=== PATIENT | male | born 1995 | race Hispanic/Latino ===

== ENCOUNTER 2016-12-19 11:21 | Inpatient (IN) | payer OTHER ==
[~2016-12-19] VITALS: Ht 167.6 cm; Wt 64.4 kg
[2016-12-19 12:52] LABS: MEAN CORPUSCULAR HEMOGLOBIN 31.3 pg (27.0-33.0); MEAN CORPUSCULAR HGB CONC 33.5 g/dl (32.0-36.5); MEAN CORPUSCULAR VOLUME 93.3 fl (80.0-96.0); RED CELL DISTRIBUTION WIDTH 12.5 % (11.5-14.5); WHITE BLOOD COUNT 4.1 K/mm3 (4.0-10.0)
[2016-12-19 13:14] LABS: METHADONE URINE NEGATIVE (NEGATIVE)
[2016-12-19 13:20] LABS: ALBUMIN 4.4 GM/DL (3.2-5.2); ALBUMIN/GLOBULIN RATIO 1.16 (1.00-1.93); ALKALINE PHOSPHATASE 87 U/L (45-117); ALT/SGPT 47 U/L (12-78); ANION GAP 5 MEQ/L (8-16); AST/SGOT 30 U/L (15-37); BILIRUBIN,DIRECT 0.1 MG/DL (0.0-0.2); BILIRUBIN,TOTAL 0.3 MG/DL (0.2-1.0); BLOOD UREA NITROGEN 23 MG/DL (7-18); CALCIUM LEVEL 9.6 MG/DL (8.5-10.1); CARBON DIOXIDE LEVEL 31 MEQ/L (21-32); CHLORIDE LEVEL 105 MEQ/L (98-107); CREATININE FOR GFR 0.85 MG/DL (0.70-1.30); GLOMERULAR FILTRATION RATE > 60.0 (>60); GLUCOSE, FASTING 90 MG/DL (70-105); POTASSIUM SERUM 4.2 MEQ/L (3.5-5.1); SODIUM LEVEL 141 MEQ/L (136-145); TOTAL PROTEIN 8.2 GM/DL (6.4-8.2)
[2016-12-19] MEDS ORDERED: traZODone 50 MG TAB PO PRN (14:30)
[2016-12-19] MEDS ORDERED: MOM 30ML SUSPENSION UDC PO PRN (14:30)
[2016-12-19] MEDS ORDERED: ACETAMINOPHEN TAB 650MG DOSE (2X325MG) PO PRN (14:30)
[2016-12-19] MEDS ORDERED: MAALOX 30 ML SUSP *UDC PO PRN (14:30)
[2016-12-19] MEDS ORDERED: VITMTA PO (14:43)
[2016-12-19 16:58] VITALS: BP 118/54
[2016-12-20 06:41] VITALS: BP 120/55
--- NOTE | 2016-12-20 10:47 | HPEPDOC ---
Medical History and Physical Date of Admission Dec 19, 2016 at 14:16 History and Physical PCP: [facility] ATTENDING: Dr. Santhosh Forte HPI: 21yoM admitted to [facility] for adjustment disorder, being medically examined today. No acute medical complaints today. Denies any fevers, chills, weakness, fatigue, [place], CP, SOB, cough, palpitations, abdominal pain, N/V/D or changes in bowel or bladder habits. PMHx: Depression PSHX: Skin tag removed from neck SOCHX: Resides in: [place], from [place] Marital Status: Single Kids: None Employment: Active duty Tobacco use: Denies ETOH: 3-4 drinks every 3 months Illicit Drugs: Denies IV Drug Use: Denies Tattoos done unprofessionally: Denies FAMHX: Mother: Alive, well Father: , unknown Siblings: None Children: None Unexpected deaths due to medical reasons: None. ROS: As noted in HPI, otherwise 11pt ROS of systems reviewed and unremarkable. PE: GEN: 21yoM, appears stated age. Well-nourished, well developed. No acute distress. Alert and oriented x 3. Pleasant, interactive. HEENT: Normocephalic, atraumatic. Pupils are equal, round, and reactive to light. Extraocular movements are intact. No nystagmus appreciated. Sclera are nonicteric. Conjunctiva without injection. Nose midline. Nasal turbinates without bogginess. EACs both patent BL. TMs both visualized and page with good cone of light, no bulging or erythema. No facial asymmetry. Moist mucous membranes. Dentition fair. Pharynx pink and moist, no cobblestoning. Neck supple , trachea midline. No lymphadenopathy or thyromegaly appreciated. CHEST: Regular rate and rhythm, +S1, +S2 LUNGS: Clear to auscultation bilaterally. No wheezes, rales, or rhonchi. Breathing appears symmetric and easy. Patient is speaking in full sentences. No accessory muscle use. ABD: Round, soft, non-tender, non-distended. +Bowel sounds throughout. No rebound or guarding. No costovertebral angle tenderness. EXT: Pulses 2+ bilaterally dorsalis pedis and radial. No lower extremity edema appreciated. SKIN: [place], dry, warm. Capillary refill <2sec. No rashes. NEURO: Alert and oriented x 3. Cranial nerves III-XII are intact. No focal deficits appreciated. EKG: pending A&P: 21yoM admitted to [facility] for adjustment disorder 1. Psych. Plan per Psychiatry. Obtain baseline EKG to assure the safety of psychiatric medications as they can prolong the QT interval. 2. Follow up with PCP on discharge. 3. Staff member Ed present throughout exam Vital Signs Vital Signs Date Time Temp Pulse Resp B/P Pulse Ox O2 Delivery O2 Flow Rate FiO2 12/20/16 06:41 98.2 57 16 120/55 12/19/16 16:58 98 Room Air Laboratory Data Labs 24H Laboratory Tests 2 12/19/16 11:58: Acetaminophen Level < 2.0L, Aspartate Amino Transf (AST/SGOT) 30, Alanine Aminotransferase (ALT/SGPT) 47, Alkaline Phosphatase 87, Total Bilirubin 0.3, Direct Bilirubin 0.1, Albumin 4.4, Albumin/Globulin Ratio 1.16, Anion Gap 5L, Calcium Level 9.6, Ethyl Alcohol Level 0.003, Glomerular Filtration Rate > 60.0 , Salicylates Level < 1.7L, Thyroid Stimulating Hormone (TSH) 0.795, Total Protein 8.2, Urine Amphetamines Screen NEGATIVE, Urine Benzodiazepines Screen NEGATIVE, Urine Opiates Screen NEGATIVE, Urine Barbiturates Screen NEGATIVE, Urine Cannabinoids Screen NEGATIVE, Urine Cocaine Metabolite Screen NEGATIVE, Urine Methadone Screen NEGATIVE, Urine Phencyclidine Screen NEGATIVE CBC/BMP Laboratory Tests 12/19/16 11:58 Red Blood Count 4.56, Mean Corpuscular Volume 93.3, Mean Corpuscular Hemoglobin 31.3, Mean Corpuscular Hemoglobin Concent 33.5, Red Cell Distribution Width 12.5 Home Medications Scheduled Multivitamins *[facility] STOCKED* (Thera M Plus *[facility] STOCKED*) 1 Tab Tab 1 TAB PO DAILY Allergies Coded Allergies: No Known Allergies (Unverified , 12/19/16) Alisa Mock Dec 20, 2016 10:47
--- NOTE | 2016-12-20 20:52 | HPEPDOC ---
[facility] History & Physical History and Physical DATE OF ADMISSION: Dec 19, 2016 at 14:16 CHIEF COMPLAINT: "I went to my [facility] appointment and told them that 2 weeks ago I let anger get the best of me and I drank and I tried to hang myself; they knew that wasn't good." HISTORY OF THE PRESENT ILLNESS: Patient is a 21-year-old male, who was referred by [facility] for evaluation after reporting to [facility] worker that he had attempted to hang himself in his barracks room 2 weeks prior. Patient indicates, "I don't think it was intentional, I was just really angry and drunk." This was patient's third suicide attempt, he denies history of self-injurious behavior. Patient states symptoms of depression began approximately one year after joining the [employer] and he attributes symptoms to the [place] in the [employer]. However, per [facility] records, patient had indicated to [facility] medication provider when seen on 12/08/16 that he had been experiencing depression since approximately August 2016 which he attributed to a combination of stressors related to mother and stepfather's divorce, not speaking to his bio-father for several years, and work -related stress. Patient informed [facility] provider that he had attempted to hang himself in September 2016, and then had attempted suicide by way of overdose on Benadryl with alcohol in October 2016, patient had been prescribed psychotropic medication by [facility] provider which he apparently never trialed. Patient indicates in the 2 weeks prior to most recent suicide attempt he was experiencing the following symptoms and stressors: Anxiety, depression, irritability, ruminative thinking, suicidal ideation, hopelessness/helplessness , erratic sleep, grief related to biological father's on 11/08/16 and being treated "like a black sheep" when attending his father's , adds family refused to tell him how his father had , alcohol use, thinking that his mother would be better off if she had patient's [employer] survivor benefits, work- related stress, poor impulse control. Patient rates current anxiety level as 0/ 10, depression 6/10, denies current suicidal or homicidal ideation, denies audiovisual hallucinations, and denies urge to engage in self-injurious behavior. Patient denies history of discomfort in social settings, denies panic attacks, denies symptoms of reexperiencing, avoidance, or hypervigilance, denies symptoms of hypomania or jeanette. Patient indicates appetite is stable and denies recent changes to weight. Patient reports sleep latency challenges of approximately one hour, denies nighttime waking and denies nightmares. Patient denies compulsive behavior, aggression and agitation, denies history of unsanctioned violence and denies having access to weapons. Patient has been in the [employer] for 3 years, stationed and [facility] for approximately 3 years, denies history of deployment. 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 Trauma: Denies. Psychosis: Denies. Personally: Is engageable, cooperative, generally pleasant. PAST PSYCHIATRIC HISTORY: Prior Psychiatric Disorder: Denies Outpatient Treatment: Indicates he has been seen at [facility] outpatient 2 on a "weekly checkup" schedule, was prescribed Wellbutrin which he never started. Also attended counseling briefly during the first grade due to stress related to mother and father when he was age 4. Suicidal/Self injurious: Suicide attempt in [address] in his barracks room, suicide attempt in October [address] of overdose on Benadryl and alcohol Psychotropic Medication History: Was prescribed Wellbutrin by [facility] outpatient provider, states he did not take medication ALLERGIES: Please see below. FAMILY PSYCHIATRIC HISTORY: Mother - anxiety, denies knowledge of family history of suicide attempt SOCIAL HISTORY: Early Relations/development: Born in [place] and raised by mother and stepfather, notes biological father left at age 8. Patient states his biological father 11/08/16 and he went to attend the noting, "the [place] side of the family blacklisted me and wouldn't tell me anything about how he ." Sibling order: Has one stepsister and one stepbrother Paternal relationships: States he has regular contact with his mother was also recently , currently no contact with his stepfather with whom he was at one time close Education: High school graduate Occupational: History of yard work, joined [employer] age 18 in [place], no deployment history Legal: Denies Martial: Single, no children, never Economic: Reports financial strain related to mother requesting financial support Supports: Indicates mother is supportive, maintains regular contact Abuse/trauma: Denies SUBSTANCE ABUSE HISTORY: Patient denies use of tobacco products indicates he "rarely" drinks alcohol, notes he consumes 5 drinks 1 time every 3-4 months. PAST MEDICAL/SURGICAL HISTORY: Labs on admission indicated a low anion gap and elevated BUN. Recently diagnosed with tinnitus, history of skin tag removal from neck, denies history of seizure or head injury. UDS negative on admission EKG pending VITAL SIGNS: B/P 126/64, P 55, R 18, T 98.2 MENTAL STATUS EXAMINATION: General appearance: Patient is a 83-mwbl-aff-year old male, who is pleasant and cooperative, makes limited eye contact, exhibits good personal hygiene, is dressed in hospital clothing, ambulates with steady gait, appears stated age. Speech: Is of normal rate, rhythm, volume, coherent, spontaneous. Thought processes: Linear, clear, goal-directed, predominantly logical Thought content: Rational, generally logical, no paranoia or tangentiality. Abstract reasoning and computation: Appear intact. Description of associations: Intact. Description of abnormal or psychotic thoughts: Denies current suicidal or homicidal ideation, denies audiovisual hallucinations, does not appear to be responding to internal stimuli, exhibits no bizarre or paranoid ideation, denies any preoccupation with violence or obsessions. Judgment: Poor. Insight: Poor. Orientation: A and O 3. Recent and remote memory: Appear intact. Attention span and concentration: Within normal limits. Fund of knowledge: Adequate. Mood: "Subtle, sticking to myself." Patient appears depressed and anxious, no mood lability noted Affect: Constricted, brightens at times DIAGNOSES: Adjustment disorder with depressed mood, bereavement, rule out MDD ASSESSMENT: Patient appears to be adjusting to unit, predominantly isolates to room but is visible at times, has not been attending groups. Screw Machine Operator and patient spoke at length today regarding medication options and commercial real estate underwriter strongly recommended antidepressant medication trial which patient declined noting, "I'm going to fix myself; I don't like to depend on medication." Patient was also apparently prescribed medication by [facility] provider which she never trialed. Patient denies suicidal and homicidal ideation and verbalizes awareness of how to access supportive services on the unit if needed. Will monitor patient's response to the inpatient treatment environment and we'll continue to encourage patient to take antidepressant in effort to reduce symptoms of anxiety, depression, and suicidal ideation. Will evaluate patient's safety, resolution of suicidal ideation, and discharge readiness. Patient is aware that when prepared for discharge he will return to [facility] for follow-up treatment. PROBLEM LIST: Suicide attempt Anxiety Depression Ineffective coping Bereavement Impulsivity Limited support INITIAL TREATMENT PLAN: 1. Patient was admitted on a 9. 2. Complete history was obtained. 3. With patients permission, family will be contacted and database will be expanded. 4. Patients medication regimen will be reviewed and changed accordingly. 5. Patient will be provided with protected environment. 6. Patient will be treated with individual, group, and milieu therapies. 7. Patient will receive supportive psych-education. 8. Discharge planning will commence immediately. 9. Outpatient follow-up treatment will be strongly recommended. 10. The initial treatment plan will focus initially on: * Depression. * Risk for suicide. * Substance abuse. ESTIMATED LENGTH OF STAY: 5-7 DAYS. TIME SPENT COUNSELING AND COORDINATING INITIAL CARE: 50 minutes. Medications Scheduled Multivitamins *[facility] STOCKED* (Thera M Plus *[facility] STOCKED*) 1 Tab Tab 1 TAB PO DAILY (Reported) Allergies Coded Allergies: No Known Allergies (Unverified , 12/19/16) Marimar Espinoza Dec 20, 2016 20:52
[2016-12-21 06:33] VITALS: BP 118/51
[2016-12-21 18:00] VITALS: BP 124/54
--- NOTE | 2016-12-21 19:11 | IPNPDOC ---
[facility] Progress Note Progress Note DATE OF SERVICE: 12/21/16 HISTORY: Patient is a 21-year-old male, who was referred by [facility] for evaluation after reporting to [facility] worker that he had attempted to hang himself in his barracks room 2 weeks prior , as indicated he had 2 prior suicide attempts. Patient reports 0/10 anxiety, 5/ 10 depression, denies audiovisual hallucinations, denies suicidal and homicidal ideation, denies urge to engage in self-injurious behavior. Patient has not been attending groups noting, "I don't want to go, I don't want to explain myself. I stick to myself, I don't like to take advice I don't think I need." Trailer Mechanic and patient spoke at length again today regarding psychotropic medications on the patient continues to deny need. 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 Patient was encouraged to participate in unit activities in effort to improve coping mechanisms. Patient indicates he is sleeping well, denies challenges with concentration and focus, describes energy level as "pretty good," notes appetite is stable. VITAL SIGNS: See below. NEW TEST RESULTS: No new results. PAST MEDICAL/SURGICAL HISTORY: Labs on admission indicated a low anion gap and elevated BUN. Recently diagnosed with tinnitus, history of skin tag removal from neck, denies history of seizure or head injury. UDS negative on admission EKG pending CURRENT MEDICATIONS: See below. MENTAL STATUS EXAMINATION: General appearance: Patient is a 59-ucls-kcc-year old male, who is pleasant and cooperative, makes limited eye contact, exhibits good personal hygiene, is dressed in hospital clothing, ambulates with steady gait, appears stated age. Speech: Is of normal rate, rhythm, volume, coherent, spontaneous. Thought processes: Linear, clear, goal-directed, predominantly logical Thought content: Rational, generally logical, no paranoia or tangentiality. Abstract reasoning and computation: Appear intact. Description of associations: Intact. Description of abnormal or psychotic thoughts: Denies current suicidal or homicidal ideation, denies audiovisual hallucinations, does not appear to be responding to internal stimuli, exhibits no bizarre or paranoid ideation, denies any preoccupation with violence or obsessions. Judgment: Poor. Insight: Poor. Orientation: A and O 3. Recent and remote memory: Appear intact. Attention span and concentration: Within normal limits. Fund of knowledge: Adequate. Mood: "Ok, I feel best when I'm in my room sticking to myself." Patient appears depressed and anxious, no mood lability noted Affect: Constricted, no brightening today DIAGNOSES: Adjustment disorder with depressed mood, bereavement, rule out MDD ASSESSMENT:Patient appears to be slowly adjusting to unit, [place] isolated to room and has not been attending groups. Trailer Mechanic and patient spoke at length today regarding medication options and business writer strongly recommended antidepressant medication trial which patient declined citing disinterest and lack of need. Patient was also apparently prescribed medication by [facility] provider which he never trialed. Patient denies suicidal and homicidal ideation and verbalizes awareness of how to access supportive services on the unit if needed. Will monitor patient's response to the inpatient treatment environment and will continue to encourage patient to take antidepressant in effort to reduce symptoms of anxiety, depression, and suicidal ideation. Will evaluate patient's safety, resolution of suicidal ideation, and discharge readiness. Patient is aware that when prepared for discharge he will return to [facility] for follow- up treatment and IOP will be recommended. MANAGEMENT PLAN: Encourage patient to consider taking psychotropic medication to address symptoms if appropriate Maintain safety precautions Patient to attend groups and participate in unit programming to develop coping strategies Engage patient in discharge planning process and arrange meeting with command to evaluate safe discharge planning when appropriate Patient to follow up with [facility] upon discharge TIME SPENT: 35 minutes. Vital Signs Vital Signs Date Time Temp Pulse Resp B/P Pulse Ox O2 Delivery O2 Flow Rate FiO2 12/21/16 18:00 98.9 55 16 124/54 12/19/16 16:58 98 Room Air Current Medications Current Medications Acetaminophen (Tylenol Tab) 650 mg Q6HP PRN PO HEADACHE or DISCOMFORT; Start at 14:30; Stop 01/18/17 at 14:29 Al Hydrox/Mg Hydrox/Simethicone (Mylanta) 30 ml Q4HP PRN PO HEARTBURN/ INDIGESTION; Start 12/19/16 at 14:30; Stop 01/18/17 at 14:29 Home Med (Med Rec Complete!) ASDIRECTED XX ; Start 12/19/16 at 14:45; Stop 07/27 at 14:49; Status DC Magnesium Hydroxide (Milk Of Magnesia) 30 ml DAILYPRN PRN PO CONSTIPATION; Start 12/19/16 at 14:30; Stop 01/18/17 at 14:29 Trazodone HCl (Desyrel) 50 mg QHSP PRN PO INSOMNIA; Start 12/19/16 at 14:30; Stop 01/18/17 at 14:29 Allergies Coded Allergies: No Known Allergies (Unverified , 12/19/16) Marimar Espinoza Dec 21, 2016 19:11 Abstract reasoning and computation: Appear intact. Description of associations: Intact. Description of abnormal or psychotic thoughts: Denies current suicidal or homicidal ideation, denies audiovisual hallucinations, does not appear to be responding to internal stimuli, exhibits no bizarre or paranoid ideation, denies any preoccupation with violence or obsessions. Judgment: Poor. Insight: Poor. Orientation: A and O 3. Recent and remote memory: Appear intact. Attention span and concentration: Within normal limits. Fund of knowledge: Adequate. Mood: "Subtle, sticking to myself." Patient appears depressed and anxious, no mood lability noted Affect: Constricted, brightens at times DIAGNOSES: Adjustment disorder with depressed mood, bereavement, rule out MDD ASSESSMENT: Patient appears to be adjusting to unit, predominantly isolates to room but is visible at times, has not been attending groups. Trailer Mechanic and patient spoke at length today regarding medication options and business writer strongly recommended antidepressant medication trial which patient declined noting, "I'm going to fix myself; I don't like to depend on medication." Patient was also apparently prescribed medication by [facility] provider which she never trialed. Patient denies suicidal and homicidal ideation and verbalizes awareness of how to access supportive services on the unit if needed. Will monitor patient's response to the inpatient treatment environment and we'll continue to encourage patient to take antidepressant in effort to reduce symptoms of anxiety, depression, and suicidal ideation. Will evaluate patient's safety, resolution of suicidal ideation, and discharge readiness. Patient is aware that when prepared for discharge he will return to [facility] for follow-up treatment. Vital Signs Vital Signs Date Time Temp Pulse Resp B/P Pulse Ox O2 Delivery O2 Flow Rate FiO2 12/21/16 18:00 98.9 55 16 124/54 12/19/16 16:58 98 Room Air Current Medications Current Medications Acetaminophen (Tylenol Tab) 650 mg Q6HP PRN PO HEADACHE or DISCOMFORT; Start at 14:30; Stop 01/18/17 at 14:29 Al Hydrox/Mg Hydrox/Simethicone (Mylanta) 30 ml Q4HP PRN PO HEARTBURN/ INDIGESTION; Start 12/19/16 at 14:30; Stop 01/18/17 at 14:29 Home Med (Med Rec Complete!) ASDIRECTED XX ; Start 12/19/16 at 14:45; Stop 07/27 at 14:49; Status DC Magnesium Hydroxide (Milk Of Magnesia) 30 ml DAILYPRN PRN PO CONSTIPATION; Start 12/19/16 at 14:30; Stop 01/18/17 at 14:29 Trazodone HCl (Desyrel) 50 mg QHSP PRN PO INSOMNIA; Start 12/19/16 at 14:30; Stop 01/18/17 at 14:29 Allergies Coded Allergies: No Known Allergies (Unverified , 12/19/16) Marimar Espinoza Dec 21, 2016 19:11
--- NOTE | 2016-12-21 22:42 | ECGEPIP ---
Stationary ECG Study [facility] Test Date: 2016-12-21 Pat Name: CINTIA NEGRETE Department: Room: [place] [address] Gender: M Gravel Hauler: MARGARET : 1995 Requested By: Alisa Mock Order Number: [id number] Reading MD: Chris Durant Measurements Intervals [place] Rate: 48 P: 71 DE: 134 QRS: 63 QRSD: 98 T: 30 QT: 423 QTc: 382 Interpretive Statements SINUS BRADYCARDIA Otherwise normal for age Electronically Signed On 12-21-2016 22:42:18 EDT by Chris Durant
[2016-12-22 05:58] VITALS: BP 108/65
--- NOTE | 2016-12-22 12:28 | IPNPDOC ---
[facility] Progress Note Progress Note DATE OF SERVICE: 12/22/16 HISTORY: Patient is a 21-year-old male, who was referred by [facility] for evaluation after reporting to [facility] worker that he had attempted to hang himself in his barracks room 2 weeks prior , as indicated he had 2 prior suicide attempts. Patient reports improvement to symptoms of anxiety and depression noting, "I feel more relaxed with no thoughts of detrimenting myself." Patient denies suicidal or homicidal ideation , denies audiovisual hallucinations, and denies urge to engage in self- injurious behavior. Patient indicates he has now attended one group, remains otherwise isolated to his room, generally has not been attending groups noting, "I prefer to stick to myself but I was out in the lounge last night." Patient spoke openly today with junior copywriter regarding previous suicide attempts. Patient stated first attempted hanging was the result of "I have just return from leave , I was very sad and I missed home." Patient indicated second attempt which involved overdose on Benadryl with alcohol occurred because "really I just wanted to get out of work." Change Control Analyst and patient spoke at length again today regarding psychotropic medications, patient continues to deny need. Patient reiterates today he plans to "ride out" the remaining 8 months he has in the [employer], after which he plans to return to [place] to be close to mother, get his own apartment and attend [employer] or [employer] for computer science or law enforcement. Patient indicates he has had a visit from his first sergeant who brought him reading materials, added he feels "good" about the visit and feels his support system is improving. Patient was encouraged to participate in unit activities in effort to improve coping mechanisms and was strongly encouraged to consider psychotropic medication trial. Patient indicates he is sleeping well , denies challenges with concentration and focus, describes energy level as "fine," notes appetite is stable. Patient is declining to sign an MAHIN to permit contact with family to strengthen support system. VITAL SIGNS: See below. NEW TEST RESULTS: No new results. PAST MEDICAL/SURGICAL HISTORY: Labs on admission indicated a low anion gap and elevated BUN. Recently diagnosed with tinnitus, history of skin tag removal from neck, denies history of seizure or head injury. UDS negative on admission 12/21/16 EKG SINUS BRADYCARDIA Otherwise normal for age CURRENT MEDICATIONS: See below. MENTAL STATUS EXAMINATION: General appearance: Patient is a 13-uldi-vwh-year old male, who is pleasant and cooperative, makes limited eye contact, exhibits good personal hygiene, is dressed in hospital clothing, ambulates with steady gait, appears stated age. Speech: Is of normal rate, rhythm, volume, coherent, spontaneous. Thought processes: Linear, clear, goal-directed, predominantly logical Thought content: Rational, generally logical, no paranoia or tangentiality. Abstract reasoning and computation: Appear intact. Description of associations: Intact. Description of abnormal or psychotic thoughts: Denies current suicidal or homicidal ideation, denies audiovisual hallucinations, does not appear to be responding to internal stimuli, exhibits no bizarre or paranoid ideation, denies any preoccupation with violence or obsessions. Judgment: Poor. Insight: Poor. Orientation: A and O 3. Recent and remote memory: Appear intact. Attention span and concentration: Within normal limits. Fund of knowledge: Adequate. Mood: "Ok, I've been trying to get out of my room more." Patient continues to appear depressed and anxious, no mood lability noted Affect: Blunted, no brightening today DIAGNOSES: Adjustment disorder with depressed mood, bereavement, rule out MDD ASSESSMENT:Patient continues to slowly adjust to unit, remains generally isolated to room, has now attended one group. Change Control Analyst and patient spoke at length today regarding medication options and junior copywriter strongly recommended antidepressant medication trial which patient declined citing disinterest and lack of need. Patient was also apparently prescribed medication by [facility] provider which he never trialed. Patient denies suicidal and homicidal ideation and verbalizes awareness of how to access supportive services on the unit if needed. Will monitor patient's response to the inpatient treatment environment and will continue to encourage patient to take antidepressant in effort to reduce symptoms of anxiety, depression, and suicidal ideation. Will evaluate patient's safety, resolution of suicidal ideation, and discharge readiness. Patient is aware that when prepared for discharge he will return to [facility] for follow- up treatment and IOP will be recommended. MANAGEMENT PLAN: Encourage patient to consider taking psychotropic medication to address symptoms if appropriate Maintain safety precautions Patient to attend groups and participate in unit programming to develop coping strategies Engage patient in discharge planning process and arrange meeting with command to evaluate safe discharge planning when appropriate Patient to follow up with [facility] upon discharge TIME SPENT: 35 minutes. Vital Signs Vital Signs Date Time Temp Pulse Resp B/P Pulse Ox O2 Delivery O2 Flow Rate FiO2 12/22/16 05:58 97.5 66 16 108/65 Room Air 12/19/16 16:58 98 Current Medications Current Medications Acetaminophen (Tylenol Tab) 650 mg Q6HP PRN PO HEADACHE or DISCOMFORT; Start at 14:30; Stop 01/18/17 at 14:29 Al Hydrox/Mg Hydrox/Simethicone (Mylanta) 30 ml Q4HP PRN PO HEARTBURN/ INDIGESTION; Start 12/19/16 at 14:30; Stop 01/18/17 at 14:29 Home Med (Med Rec Complete!) ASDIRECTED XX ; Start 12/19/16 at 14:45; Stop 07/27 at 14:49; Status DC Magnesium Hydroxide (Milk Of Magnesia) 30 ml DAILYPRN PRN PO CONSTIPATION; Start 12/19/16 at 14:30; Stop 01/18/17 at 14:29 Trazodone HCl (Desyrel) 50 mg QHSP PRN PO INSOMNIA; Start 12/19/16 at 14:30; Stop 01/18/17 at 14:29 Allergies Coded Allergies: No Known Allergies (Unverified , 12/19/16) Marimar Espinoza Dec 22, 2016 12:28
[2016-12-22 18:00] VITALS: BP 116/59
[2016-12-23 06:00] VITALS: BP 121/59
[2016-12-23 18:00] VITALS: BP 110/63
[2016-12-24 07:00] VITALS: BP 126/57
[2016-12-24 18:00] VITALS: BP 135/59
[2016-12-25 06:23] VITALS: BP 113/50
--- NOTE | 2016-12-25 10:31 | IPN ---
DATE OF VISIT: 12/24/2016 Mr. Carlin who came in for a suicide attempt while drinking. He has had a history of previous suicide attempts. He states he is home sick for [place] and does not like the [employer]. He would like to return to [place], [place]. He feels he has not been productive in the [employer] and would like to work for [employer] after going to school for computers. He minimizes his previous attempts at hurting himself and states it is due to his immaturity. The patient states he is not presently suicidal, denies hallucinations, delusions, obsessions, compulsions, or phobias. He has a full fund of information and no disturbances of thought. IMPRESSION: 1. Major depressive illness. 2. Alcohol abuse. JONAH
[2016-12-25 18:00] VITALS: BP 120/60
--- NOTE | 2016-12-25 21:09 | IPNPDOC ---
[facility] Progress Note Progress Note DATE OF SERVICE: 12/25/16 HISTORY: 21 year old male with a history of depression and previous suicide attempt by trying to hang himself at the barracks in [place]. He has previous suicide attempts. He is trying to minimize his depressive symptoms and h/o suicide attempt. He says he is doing well and he decided not to take medications because he thinks he can overcome his problems with psychotherapy and perseverance. He says he doesnt like the [employer], feels frustrated and feels homesick and he wants to go back to [place] and continue with his education. VITAL SIGNS: See below. NEW TEST RESULTS: None CURRENT MEDICATIONS: Trazodone 50 mgs. PO QHS PRN MENTAL STATUS EXAMINATION: Patient is a 21-year old male, who is dressed in hospital clothes, coperative with interview, pleasant, with good eye contact and good hygiene. Speech: Is normal in tone, volume and speed. He is not circumstantial, nor tangential. Language skills are fair Thought processes including: Thought process is structured, linear, coherent. Thought content: Negative for delusions, hallucinations, obsessions, phobias and negative for active suicidal/homicidal thoughts. Abstract reasoning, and computation: Fair Description of associations: No loosening of associations Description of abnormal or psychotic thoughts: Not present Judgment: Poor Insight: Poor Orientation: Oriented x 3 Recent and remote memory: Fair Attention span and concentration: Fair Language: Fluid, structured Fund of knowledge: Fair Mood: " I feel better" Affect: blunted DIAGNOSES: 1. Major Depressive Disorder with history of suicide attempt. ASSESSMENT:Patient needs hospitalization to gain insight into his psychiatric illness. Needs to continue attending groups and receiving psychotherapy. MANAGEMENT PLAN: Continue hospitalization TIME SPENT: 20 minutes. Vital Signs Vital Signs Date Time Temp Pulse Resp B/P Pulse Ox O2 Delivery O2 Flow Rate FiO2 12/25/16 06:23 97.9 76 18 113/50 12/22/16 05:58 Room Air 12/19/16 16:58 98 Current Medications Current Medications Acetaminophen (Tylenol Tab) 650 mg Q6HP PRN PO HEADACHE or DISCOMFORT; Start at 14:30; Stop 01/18/17 at 14:29 Al Hydrox/Mg Hydrox/Simethicone (Mylanta) 30 ml Q4HP PRN PO HEARTBURN/ INDIGESTION; Start 12/19/16 at 14:30; Stop 01/18/17 at 14:29 Home Med (Med Rec Complete!) ASDIRECTED XX ; Start 12/19/16 at 14:45; Stop 07/27 at 14:49; Status DC Magnesium Hydroxide (Milk Of Magnesia) 30 ml DAILYPRN PRN PO CONSTIPATION; Start 12/19/16 at 14:30; Stop 01/18/17 at 14:29 Trazodone HCl (Desyrel) 50 mg QHSP PRN PO INSOMNIA; Start 12/19/16 at 14:30; Stop 01/18/17 at 14:29 Allergies Coded Allergies: No Known Allergies (Unverified , 12/19/16) ALANA MENDOZA MD Dec 25, 2016 21:09
[2016-12-26 06:40] VITALS: BP 129/59
--- NOTE | 2016-12-26 17:31 | IPNPDOC ---
[facility] Progress Note Progress Note DATE OF SERVICE: 12/26/16 Elevated 21-year-old male with history of suicidal ideation, depressive disorder who was admitted after he told his therapist that he was going to overdose. He said that he doesn't like the [employer] and all what he wants is to go back to [place] and apply to [employer] or other schools so he continued his education. He denies suicidal ideation, homicidal ideation, auditory or visual hallucinations, thought delusions, thought insertion, obsessions, compulsions, phobias. He denies to have a plan to commit suicide or homicide. His mood is brighter, his affect is less restricted, has good eye contact and good hygiene. Cooperative with interview, pleasant in no distress. There is no psychomotor retardation or agitation. DIAGNOSES: 1. Major depressive disorder 2. History of alcohol abuse ASSESSMENT: Patient has improved, his attending groups, receiving psychotherapy and socializing with staff and other patients. He seems less depressed, less anxious and he seems to be goal directed, has plans for the future. MANAGEMENT PLAN: He'll have to continue with psychotherapy and if he agrees to, medications as an outpatient. Hopefully, as he goes back to [place] and goes back to studying he will feel happier. At this moment he is not in risk for suicide TIME SPENT: 15 minutes. Vital Signs Vital Signs Date Time Temp Pulse Resp B/P Pulse Ox O2 Delivery O2 Flow Rate FiO2 12/26/16 06:40 97.3 82 16 129/59 12/22/16 05:58 Room Air Current Medications Current Medications Acetaminophen (Tylenol Tab) 650 mg Q6HP PRN PO HEADACHE or DISCOMFORT; Start at 14:30; Stop 01/18/17 at 14:29 Al Hydrox/Mg Hydrox/Simethicone (Mylanta) 30 ml Q4HP PRN PO HEARTBURN/ INDIGESTION; Start 12/19/16 at 14:30; Stop 01/18/17 at 14:29 Home Med (Med Rec Complete!) ASDIRECTED XX ; Start 12/19/16 at 14:45; Stop 07/27 at 14:49; Status DC Magnesium Hydroxide (Milk Of Magnesia) 30 ml DAILYPRN PRN PO CONSTIPATION; Start 12/19/16 at 14:30; Stop 01/18/17 at 14:29 Trazodone HCl (Desyrel) 50 mg QHSP PRN PO INSOMNIA; Start 12/19/16 at 14:30; Stop 01/18/17 at 14:29 Allergies Coded Allergies: No Known Allergies (Unverified , 12/19/16) ALANA MENDOZA MD Dec 26, 2016 17:31
[2016-12-26 18:00] VITALS: BP 123/58
[2016-12-27 06:22] VITALS: BP 127/62
--- NOTE | 2016-12-27 09:43 | DS.PDOC ---
[facility] Discharge Summary Discharge Summary DATE OF ADMISSION: Dec 19, 2016 at 14:16 DATE OF DISCHARGE: Dec 27, 2016 HISTORY: Patient is a 21-year-old male, who was referred by [facility] for evaluation after reporting to [facility] worker that he had attempted to hang himself in his barracks room 2 weeks prior. Patient indicates, "I don't think it was intentional, I was just really angry and drunk." This was patient's third suicide attempt, he denies history of self-injurious behavior. Patient states symptoms of depression began approximately one year after joining the [employer] and he attributes symptoms to the berlin in the [employer]. However, per [facility] records, patient had indicated to [facility] medication provider when seen on 12/08/16 that he had been experiencing depression since approximately August 2016 which he attributed to a combination of stressors related to mother and stepfather's divorce, not speaking to his bio-father for several years, and work-related stress. Patient informed [facility] provider that he had attempted to hang himself in September 2016, and then had attempted suicide by way of overdose on Benadryl with alcohol in October 2016, patient had been prescribed psychotropic medication by [facility] provider which he apparently never trialed. Patient indicates in the 2 weeks prior to most recent suicide attempt he was experiencing the following symptoms and stressors: Anxiety, depression, irritability, ruminative thinking, suicidal ideation, hopelessness/helplessness, erratic sleep, grief related to biological father's on 11/08/16 and being treated "like a black sheep" when attending his father's , adds family refused to tell him how his father had , alcohol use, thinking that his mother would be better off if she had patient's [employer] survivor benefits, work-related stress, poor impulse control. Patient rates current anxiety level as 0/10, depression 6/10, denies current suicidal or homicidal ideation, denies audiovisual hallucinations, and denies urge to engage in self-injurious behavior. Patient denies history of discomfort in social settings, denies panic attacks, denies symptoms of reexperiencing, avoidance, or hypervigilance, denies symptoms of hypomania or jeanette. Patient indicates appetite is stable and denies recent changes to weight. Patient reports sleep latency challenges of approximately one hour, denies nighttime waking and denies nightmares. Patient denies compulsive behavior, aggression and agitation, denies history of unsanctioned violence and denies having access to weapons. Patient has been in the [employer] for 3 years, stationed and [facility] for approximately 3 years, denies history of deployment. 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 Also attended counseling briefly during the first grade due to stress related to mother and father when he was age 4. Suicidal/Self injurious: Suicide attempt in September [address] in his barracks room, suicide attempt in October [address] overdose on Benadryl and alcohol Psychotropic Medication History: Was prescribed Wellbutrin by [facility] health outpatient provider, states he did not take medication MEDICAL/SURGICAL HISTORY: Labs on admission indicated a low anion gap and elevated BUN. Recently diagnosed with tinnitus, history of skin tag removal from neck, denies history of seizure or head injury. UDS negative on admission 12/21/16 EKG SINUS BRADYCARDIA Otherwise normal for age FAMILY PSYCHIATRIC HISTORY: Mother - anxiety, denies knowledge of family history of suicide attempt SOCIAL HISTORY: Early Relations/development: Born in [place] and raised by mother and stepfather, notes biological father left at age 8. Patient states his biological father 11/08/16 and he went to attend the noting, "the Israeli side of the family blacklisted me and wouldn't tell me anything about how he ." Sibling order: Has one stepsister and one stepbrother Paternal relationships: States he has regular contact with his mother was also recently , currently no contact with his stepfather with whom he was at one time close Education: High school graduate Occupational: History of yard work, joined [employer] age 18 in [place], no deployment history Legal: Denies Martial: Single, no children, never Economic: Reports financial strain related to mother requesting financial support Supports: Indicates mother is supportive, maintains regular contact Abuse/trauma: Denies SUBSTANCE ABUSE HISTORY: Patient denies use of tobacco products indicates he "rarely" drinks alcohol, notes he consumes 5 drinks 1 time every 3-4 months. TREATMENT PROGRESS ON UNIT: Patient has adjusted slowly to unit. Patient was initially isolative and withdrawn, indicating he prefers to be alone. During course of treatment patient has become visible on the unit, is now socializing well with peers, and has been participating well in unit activities. Patient has declined to allow grievance and appeals coordinator to make contact with his family but verbalizes awareness of benefit he is gained from from talking in groups and connecting better with others. Patient no longer minimizes symptoms, previous suicide attempts, or events which led to current hospitalization. Patient has repeatedly declined psychotropic medications indicating he does not feel he needs medication and is able to verbalize the development of new coping mechanisms for dealing with symptoms of anxiety, depression, and suicidal ideation should symptoms reemerge. Patient denies symptoms of anxiety and depression, agitation, irritability, impulsivity and mood lability. Patient also denies suicidal and homicidal ideation, denies audiovisual hallucinations, denies urge to engage in self-injurious behavior. Patient reports improvement to energy level and denies challenges with concentration and focus, indicates appetite is stable, and denies challenges related to sleep. 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 Patient is requesting discharge today and is aware he will be returning to [facility] for safety check in and participation in outpatient psychotherapy with recommendation being made for IOP and RONALD evaluations. Patient verbalizes understanding of and agreement with discharge plan. MENTAL STATUS EXAMINATION ON DISCHARGE: General appearance: Patient is a 14-iyit[age]fgm-year old male, who is pleasant and cooperative, makes adequate eye contact, exhibits good personal hygiene, is dressed in hospital clothing, ambulates with steady gait, appears stated age. Speech: Is of normal rate, rhythm, volume, coherent, spontaneous. Thought processes: Linear, clear, goal-directed, predominantly logical Thought content: Rational, generally logical, no paranoia or tangentiality. Abstract reasoning and computation: Appear intact. Description of associations: Intact. Description of abnormal or psychotic thoughts: Denies current suicidal or homicidal ideation, denies audiovisual hallucinations, does not appear to be responding to internal stimuli, exhibits no bizarre or paranoid ideation, denies any preoccupation with violence or obsessions. Judgment: Adequate, has improved during treatment Insight: Adequate, has improved during treatment Orientation: A and O 3. Recent and remote memory: Appear intact. Attention span and concentration: Within normal limits. Fund of knowledge: Adequate. Mood: "Good, much better." Patient denies anxiety and depression, no mood lability noted Affect: Mild constriction, brightens frequently and appropriately, congruent with mood CONDITION ON DISCHARGE: Stable, no suicidal or homicidal ideation DIAGNOSES: Adjustment disorder with depressed mood, bereavement, rule out MDD MEDICATIONS ON DISCHARGE: Patient has declined psychotropic medications FOLLOW UP PLAN: Patient to discharge and to be transported by command to [facility] where he will undergo safety check and to initiate outpatient psychotherapy services Recommendation made for RONALD and IOP evaluations Patient to follow up with [facility] within 5-7 days of discharge TIME SPENT: 25 minutes. Vital Signs/I&Os Vital Signs Date Time Temp Pulse Resp B/P Pulse Ox O2 Delivery O2 Flow Rate FiO2 12/27/16 06:22 97.9 62 14 127/62 Room Air Medications Scheduled Multivitamins *[facility] STOCKED* (Thera M Plus *[facility] STOCKED*) 1 Tab Tab 1 TAB PO DAILY (Reported) Allergies Coded Allergies: No Known Allergies (Unverified , 12/19/16) Marimar Espinoza Dec 27, 2016 09:43
== END 2016-12-27 12:15 | disposition home or self-care (01) | DRG 881 ==
LOC: M ED 13:31 → M ED INP 14:16 → M PSY 15:56
PROVIDERS: ADMIT Psychiatry & Neurology Child & Adolescent Psychiatry; ATTEND Psychiatry & Neurology Child & Adolescent Psychiatry
DX: F43.21 Adjustment disorder with depressed mood (principal); Z63.4 Disappearance and death of family member; F32.9 Major depressive disorder, single episode, unspecified

== ENCOUNTER 2017-06-18 02:54 | Emergency (ER) | payer OTHER ==
[~2017-06-18] VITALS: Ht 167.6 cm; Wt 64.5 kg
[~2017-06-18 02:54] MED LIST: VITMTA PO
--- NOTE | 2017-06-18 05:03 | REP ---
Clinical: Trauma. Technique: AP, lateral, bilateral oblique views right hand . Findings: The osseous structures and joint spaces are intact and normal. There is no evidence for acute fracture or dislocation. Surrounding soft tissues are unremarkable. No subcutaneous emphysema or radiodense foreign body. Impression: Age appropriate right hand series. No acute fracture or dislocation. Signed by Suresh Pereira MD 06/18/2017 04:54 A
[2017-06-18 06:00] VITALS: BP 158/72
== END 2017-06-18 06:01 | disposition home or self-care (01) ==
LOC: EDBD 02:54 → M ED 02:54
DX: F10.129 Alcohol abuse with intoxication, unspecified (principal); S60.222A Contusion of left hand, initial encounter; S80.812A Abrasion, left lower leg, initial encounter; X58.XXXA Exposure to other specified factors, initial encounter; Y92.099 Unspecified place in other non-institutional residence as the place of occurrence of the external cause; Y93.89 Activity, other specified; Y99.9 Unspecified external cause status